=== PATIENT | male | born 1960 | race Caucasian/White ===

== ENCOUNTER 2018-01-26 11:11 | Emergency (ER) | payer MEDICARE, BC, OTHER ==
--- NOTE | 2018-01-26 11:47 | ED ---
General Adult HPI - General Chief complaint: Altered Mental Status Stated complaint: Altered Mental Time Seen by Provider: 01/26/18 11:27 Source: patient, RN notes reviewed Mode of arrival: wheelchair Limitations: no limitations - History of Present Illness Initial comments: Patient is a pleasant 57-year-old male presenting to the emergency department with concerns regarding mental status. Patient states he is in the process of moving. Patient states he has a lot of work to do with that as well as stress. Patient states he is not slept for the past 2 days, possibly 3. Patient finally became very exhausted last night around midnight. Patient slept only until 6. Patient feels like he needed a lot more sleep. Patient was driving to the hospital today for evaluation at the wound care center. Patient had an appointment that is important to him. Patient has a known right toe ulcer. Patient states it is not necessarily getting worse however he did not want to miss his appointment. Patient states he knows he should've slept more. Patient has had similar episode occur a couple of times previously. Patient states he was driving into [place] and is not clear how but [place]. Patient was brought to wound care by officer escort. Wound care recommended patient be evaluated in the emergency department instead. Patient states other than being tired he feels fine at this time and has no specific complaints. Patient denies feeling confused. - Related Data Home Medications Medication Instructions Recorded Confirmed Famotidine [Pepcid] 20 mg PO DAILY 09/30/16 01/26/18 LORazepam [Ativan] 0.5 mg PO DAILY PRN 09/30/16 01/26/18 Levothyroxine Sodium [Synthroid] 50 mcg PO DAILY 09/30/16 01/26/18 Metoprolol Succinate (ER) [Toprol 50 mg PO DAILY 09/30/16 01/26/18 Xl] Tamsulosin [Flomax] 0.4 mg PO DAILY 09/30/16 01/26/18 hydrALAZINE HCL [Apresoline] 25 mg PO BID 09/30/16 01/26/18 Calcium Acetate [Phoslo] 2,004 mg PO BID PRN 01/26/18 01/26/18 Calcium Acetate [Phoslo] 2,668 mg PO TID 01/26/18 01/26/18 Citalopram Hydrobromide 20 mg PO DAILY 01/26/18 01/26/18 [Citalopram HBr] Gabapentin [Neurontin] 400 mg PO TID 01/26/18 01/26/18 Gemfibrozil [Lopid] 600 mg PO AC-BID 01/26/18 01/26/18 OXcarbazepine [Trileptal] 300 mg PO BID 01/26/18 01/26/18 Ondansetron HCl [Zofran] 4 mg PO DAILY PRN 01/26/18 01/26/18 QUEtiapine FUMARATE [Seroquel Xr] 400 mg PO HS 01/26/18 01/26/18 Sevelamer [Renvela] 800 mg PO AC-TID 01/26/18 01/26/18 amLODIPine BESYLATE [Norvasc] 5 mg PO DAILY 01/26/18 01/26/18 buPROPion HCL [Wellbutrin SR] 100 mg PO BID 01/26/18 01/26/18 rOPINIRole HCL [Requip] 5 mg PO TID PRN 01/26/18 01/26/18 Allergies Allergy/AdvReac Type Severity Reaction Status Date / Time lisinopril Allergy Swelling Verified 01/26/18 11:19 Review of Systems ROS Statement: Those systems with pertinent positive or pertinent negative responses have been documented in the HPI. ROS Other: All systems not noted in ROS Statement are negative. Constitutional: Denies: fever Eyes: Denies: eye pain ENT: Denies: ear pain Respiratory: Denies: cough Cardiovascular: Denies: chest pain Endocrine: Reports: fatigue Gastrointestinal: Denies: abdominal pain Genitourinary: Denies: dysuria Musculoskeletal: Denies: back pain Skin: Denies: lesions Neurological: Denies: headache, weakness, confusion, vertigo Psychiatric: Denies: depression, auditory hallucinations, visual hallucinations , homicidal thoughts, suicidal thoughts Past Medical History Past Medical History: Dialysis, GERD/Reflux, Hyperlipidemia, Hypertension, Osteoarthritis (OA), Renal Disease, Thyroid Disorder History of Any Multi-Drug Resistant Organisms: None Reported Additional Past Surgical History / Comment(s): fistula 2011, stent placed for dialysis 2011 Past Anesthesia/Blood Transfusion Reactions: No Reported Reaction Past Psychological History: Anxiety Smoking Status: Current every day smoker Past Drug Use History: None Reported - Past Family History Father History Unknown: Yes Mother History Unknown: Yes General Exam Limitations: no limitations General appearance: alert, in no apparent distress Head exam: Present: atraumatic, normocephalic Eye exam: Present: normal appearance, PERRL, EOMI. Absent: nystagmus ENT exam: Present: normal oropharynx Neck exam: Present: normal inspection. Absent: meningismus Respiratory exam: Present: normal lung sounds bilaterally Cardiovascular Exam: Present: regular rate, normal rhythm GI/Abdominal exam: Present: soft. Absent: tenderness Extremities exam: Present: normal inspection Back exam: Present: normal inspection Neurological exam: Present: alert, oriented X3, CN II-XII intact. Absent: altered, motor sensory deficit Expanded Neurological exam: Present: protecting the airway Patient oriented to: Present: person, place, time Speech: Present: fluid speech Cranial nerves: EOM's Intact: Normal, Facial Sensation: Normal Cerebellar function: Finger to Nose: Normal (Slightly limited secondary to patient's chronic rotator cuff pain however exam otherwise appears within normal limits) Sensory exam: Upper Extremity Light Touch: Normal, Lower Extremity Light Touch: Normal Motor strength exam: RUE: 5, LUE: 5, RLE: 5, LLE: 5 Eye Response: (4) open spontaneously Motor Response: (6) obeys commands Verbal Response: (5) oriented Psychiatric exam: Present: normal affect, normal mood. Absent: depressed, agitated, anxious Skin exam: Present: normal color Course Vital Signs 01/26/18 01/26/18 01/26/18 11:14 12:20 13:32 Temperature 97 F L 98.3 F Pulse Rate 63 64 77 Respiratory 16 18 16 Rate Blood Pressure 115/73 131/73 114/70 O2 Sat by Pulse 100 99 100 Oximetry EKG Findings - EKG Comments: EKG Findings:: Normal sinus rhythm 64. MS 174. QRS 102. QT 508. QTC 524. Normal axis. Normal QRS. No acute ST change. Medical Decision Making - Medical Decision Making Patient reevaluated and sitting up at bedside. Patient remains alert and appropriate. Patient is updated regarding multiple concerns including elevated bicarbonate level, elevated CO2 level and low oxygen level. Patient is made aware that these could be life-threatening conditions. Patient is also made aware of prolonged QTC and risk for dysrhythmia and . Patient is strongly recommended admission. Despite this patient refuses admission. Patient does demonstrate medical decision making. Patient states he has something going on tomorrow that he cannot miss. Patient is agreeable to do close follow-up with his primary care physician and have his primary care physician review our records. Patient will leave AGAINST MEDICAL ADVICE. Patient does admit that he did have dialysis just a day ago. - Lab Data Result diagrams: 01/26/18 11:25 01/26/18 11:25 Lab Results 01/26/18 01/26/18 01/26/18 Range/Units 11:25 11:25 12:07 WBC 5.0 (3.8-10.6) k/uL RBC 3.28 L (4.30-5.90) m/uL Hgb 10.3 L (13.0-17.5) gm/dL Hct 31.4 L (39.0-53.0) % MCV 95.7 (80.0-100.0) fL MCH 31.4 (25.0-35.0) pg MCHC 32.8 (31.0-37.0) g/dL RDW 14.5 (11.5-15.5) % Plt Count 218 (150-450) k/uL Neutrophils % 67 % Lymphocytes % 20 % Monocytes % 9 % Eosinophils % 2 % Basophils % 1 % Neutrophils # 3.4 (1.3-7.7) k/uL Lymphocytes # 1.0 (1.0-4.8) k/uL Monocytes # 0.5 (0-1.0) k/uL Eosinophils # 0.1 (0-0.7) k/uL Basophils # 0.0 (0-0.2) k/uL Sample Site ABG pH (7.35-7.45) ABG pCO2 (35-45) mmHg ABG pO2 (83-108) mmHg ABG HCO3 (21-25) mmol/L ABG Total CO2 (19-24) mmol/L ABG O2 Saturation (94-97) % ABG Base Excess mmol/L Alonso Test FiO2 % Sodium 142 (137-145) mmol/L Potassium 3.6 (3.5-5.1) mmol/L Chloride 85 L (98-107) mmol/L Carbon Dioxide 40 H* (22-30) mmol/L Anion Gap 17 mmol/L BUN 36 H (9-20) mg/dL Creatinine 6.10 H* (0.66-1.25) mg/dL Est GFR (CKD-EPI)AfAm 11 (>60 ml/min/1.73 sqM) Est GFR (CKD-EPI)NonAf 9 (>60 ml/min/1.73 sqM) Glucose 90 (74-99) mg/dL POC Glucose (mg/dL) 142 H (75-99) mg/dL POC Glu Print Developer Automatic ID Austin Garcia Calcium 9.4 (8.4-10.2) mg/dL Total Bilirubin 0.3 (0.2-1.3) mg/dL AST 32 (17-59) U/L ALT 34 (21-72) U/L Alkaline Phosphatase 69 (38-126) U/L Total Protein 6.2 L (6.3-8.2) g/dL Albumin 4.0 (3.5-5.0) g/dL 01/26/18 Range/Units 12:44 WBC (3.8-10.6) k/uL RBC (4.30-5.90) m/uL Hgb (13.0-17.5) gm/dL Hct (39.0-53.0) % MCV (80.0-100.0) fL MCH (25.0-35.0) pg MCHC (31.0-37.0) g/dL RDW (11.5-15.5) % Plt Count (150-450) k/uL Neutrophils % % Lymphocytes % % Monocytes % % Eosinophils % % Basophils % % Neutrophils # (1.3-7.7) k/uL Lymphocytes # (1.0-4.8) k/uL Monocytes # (0-1.0) k/uL Eosinophils # (0-0.7) k/uL Basophils # (0-0.2) k/uL Sample Site rrad ABG pH 7.48 H (7.35-7.45) ABG pCO2 55 H (35-45) mmHg ABG pO2 74 L (83-108) mmHg ABG HCO3 42 H* (21-25) mmol/L ABG Total CO2 44 H (19-24) mmol/L ABG O2 Saturation 95.0 (94-97) % ABG Base Excess 18.5 mmol/L Alonso Test Yes FiO2 21 % Sodium (137-145) mmol/L Potassium (3.5-5.1) mmol/L Chloride (98-107) mmol/L Carbon Dioxide (22-30) mmol/L Anion Gap mmol/L BUN (9-20) mg/dL Creatinine (0.66-1.25) mg/dL Est GFR (CKD-EPI)AfAm (>60 ml/min/1.73 sqM) Est GFR (CKD-EPI)NonAf (>60 ml/min/1.73 sqM) Glucose (74-99) mg/dL POC Glucose (mg/dL) (75-99) mg/dL POC Glu Print Developer Automatic ID Calcium (8.4-10.2) mg/dL Total Bilirubin (0.2-1.3) mg/dL AST (17-59) U/L ALT (21-72) U/L Alkaline Phosphatase (38-126) U/L Total Protein (6.3-8.2) g/dL Albumin (3.5-5.0) g/dL - Radiology Data Radiology results: image reviewed (Chest x-ray shows no acute process) Disposition Clinical Impression: Hypoxia, Carbon dioxide retention, Prolonged QT interval Disposition: Left Against Medical Advice Instructions: Altered Mental Status (ED), Hypoxia (ED) Additional Instructions: Please follow-up to primary care physician as soon as possible. Return for drowsiness, change in mental status, palpitations, weakness, chest pain and worsening symptoms or any other concerns. Also follow-up with cardiology and pulmonary. Also follow-up with your direct support professional caregiver. You're leaving AGAINST MEDICAL ADVICE. Is patient prescribed a controlled substance at d/c from ED?: No Referrals: Rajiv Mondragon DO [Primary Care Provider] - 1-2 days Michael Russell MD [STAFF PHYSICIAN] - 1-2 days Irene Kaur MD [STAFF PHYSICIAN] - 1-2 days Time of Disposition: 13:54
[2018-01-26 11:51] LABS: Basophils % (A) 1 %; Eosinophils # (A) 0.1 k/uL (0-0.7); Eosinophils % (A) 2 %; HCT 31.4 % (39.0-53.0); HGB 10.3 gm/dL (13.0-17.5); Lymphocytes % (A) 20 %; MCH 31.4 pg (25.0-35.0); MCHC 32.8 g/dL (31.0-37.0); MCV 95.7 fL (80.0-100.0); Mean Platelet Volume 7.6; Monocytes # (A) 0.5 k/uL (0-1.0); Monocytes % (A) 9 %; Neutrophils # (A) 3.4 k/uL (1.3-7.7); Neutrophils % (A) 67 %; Platelet Count 218 k/uL (150-450); RBC 3.28 m/uL (4.30-5.90); RDW 14.5 % (11.5-15.5)
[2018-01-26 12:00] LABS: Calcium 9.4 mg/dL (8.4-10.2); Potassium 3.6 mmol/L (3.5-5.1); Total Bilirubin 0.3 mg/dL (0.2-1.3); Total Protein 6.2 g/dL (6.3-8.2)
[2018-01-26 12:12] LABS: Glucose,Whole Blood 142 mg/dL (75-99)
--- NOTE | 2018-01-26 12:12 | XR ---
EXAMINATION TYPE: XR chest 2V DATE OF EXAM: 01/26/2018 COMPARISON: NONE HISTORY: Altered mental status TECHNIQUE: Frontal and lateral views of the chest are obtained. FINDINGS: There is no focal air space opacity, pleural effusion, or pneumothorax seen. The cardiac silhouette size is within normal limits. The osseous structures are intact. There are overlying car diac leads and the patient is rotated. Stent is present over the left subclavian region. Suspect a mi ld spinal curvature. IMPRESSION: No acute cardiopulmonary process.
[2018-01-26 12:54] LABS: ABG PCO2 55 mmHg (35-45); ABG PH 7.48 (7.35-7.45); ABG PO2 74 mmHg (83-108)
[2018-01-26 12:55] LABS: ABG Base Excess 18.5 mmol/L; ABG HCO3 42 mmol/L (21-25); ABG TCO2 44 mmol/L (19-24)
[2018-01-26 13:52] LABS: Appearance,Urine Clear (Clear); Bilirubin,Urine Negative (Negative); Blood,Urine Trace (Negative); Color,Urine Yellow; Glucose,Urine (UA) 2+ (Negative); Ketones,Urine Negative (Negative); Leukocyte Esterase,Urine Negative (Negative); Nitrite,Urine Negative (Negative); PH, Urine 8.5 (5.0-8.0); Protein,Urine 3+ (Negative); RBC,Urine 3 /hpf (0-5); Specific Gravity,Urine 1.007 (1.001-1.035); Urobilinogen,Urine <2.0 mg/dL (<2.0); WBC,Urine 1 /hpf (0-5)
[2018-01-26 14:04] LABS: Amphetamine Screen,Urine Not Detected (NotDetected); Barbiturate Screen,Urine Not Detected (NotDetected); Benzodiazepines Screen,Urine Not Detected (NotDetected); Cocaine Screen,Urine Not Detected (NotDetected); Methadone Screen, Urine Not Detected (NotDetected); Opiate Screen,Urine Not Detected (NotDetected); Oxycodone Screen, Urine Not Detected (NotDetected); Phencyclidine Screen,Urine Not Detected (NotDetected); Tricyclic Antidepressant,Urine Detected (NotDetected); Urn Cannabinoid Scrn Not Detected (NotDetected)
[2018-01-26 14:27] VITALS: BP 122/72; PULSE 75; RESP 18; TEMP 97.9
== END 2018-01-26 14:15 | disposition left against medical advice (07) ==
LOC: EC 11:11
DX: E87.2 Acidosis (principal); R09.02 Hypoxemia; I45.81 Long QT syndrome; K21.9 Gastro-esophageal reflux disease without esophagitis; I12.9 Hypertensive chronic kidney disease with stage 1 through stage 4 chronic kidney disease, or unspecified chronic kidney disease; N18.9 Chronic kidney disease, unspecified; E78.5 Hyperlipidemia, unspecified; M19.90 Unspecified osteoarthritis, unspecified site; E07.9 Disorder of thyroid, unspecified; F41.9 Anxiety disorder, unspecified; F17.200 Nicotine dependence, unspecified, uncomplicated; Z79.899 Other long term (current) drug therapy; Z88.8 Allergy status to other drugs, medicaments and biological substances; Z99.2 Dependence on renal dialysis
CPT/HCPCS: 36415; 36600; 71046; 80053; 80183; 80306; 81001; 82805; 85025; 93005; 99285